=== PATIENT | male | born 1955 | race Caucasian/White ===

== ENCOUNTER 2017-08-20 07:05 | Inpatient (IN) ==
[2017-08-20] MEDS ORDERED: Heparin 10,000 UNITS/10 ML Vial (for IV use) IV.PUSH STA (07:56)
[2017-08-20] MEDS ORDERED: Sod Chloride 0.9% Inj 1,000 ML IV.SIG SCH (08:00)
[2017-08-20] MEDS ORDERED: Heparin/NS PF Inj 1,500 ML ONE (08:05)
[2017-08-20] MEDS ORDERED: Lidocaine PF 1% Inj 30 ML Vial ONE (08:05)
[2017-08-20] MEDS ORDERED: fentaNYL Citrate Inj 100 MCG/2 ML Ampul ONE (08:10)
[2017-08-20] MEDS ORDERED: Heparin 10,000 UNITS/10 ML Vial (for IV use) ONE (08:10)
--- NOTE | 2017-08-20 08:12 | ED ---
HPI General Chief Complaint: Chest Pain Stated Complaint: chest pain Time Seen by Provider: 08/20/17 07:38 Source: patient Mode of arrival: ambulatory Limitations: no limitations History of Present Illness HPI narrative: 61-year-old male complains of chest pain. Patient has history of patient has history of CAD status post CABG 7 years ago. Patient states that he has history intermittent chest pain since then. 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 Patient started having chest pain around 2:00 last night after strenuous work. Patient states that pain is substernal and right-sided chest with radiation to both arms. Patient states that the pain aching pain and sharp pain. Patient has symptoms of indigestion. Patient states that the chest pain lasted a short period of time and resolved with rest. Patient states that the chest pain recurred again around 5:00 this morning and has been persistent since then. Patient denies any nausea diaphoresis. Patient denies any shortness of breath. On a scale from 1-10 the pain is a 5. Patient also has history hypertension and hyperlipidemia. Patient to take aspirin 81 mg daily but not today. MD complaint: chest pain Complete Quality Measures for STEMI Alert Patients STEMI Alert: Yes Onset (ago): hour(s) Time: 08:11 Duration: constant Onset: during rest Pain location: substernal Severity: moderate Severity scale (1-10): 5 Quality: tightness, aching and sharp Pain radiation: RUE and LUE Relieving factors: rest and remaining still Exacerbating factors: exertion Context: other Associated symptoms: nausea Treatments prior to arrival chest pain: none Related Data Home Medications Medication Instructions Recorded Confirmed atorvastatin 1 tab PO DAILY 08/21/17 08/21/17 Previous Rx's Medication Instructions Recorded aspirin 81 mg PO DAILY tab 08/21/17 lisinopril 2.5 mg PO DAILY tab 08/21/17 metoprolol tartrate 25 mg PO BID tab 08/21/17 prasugrel [Effient] 10 mg PO DAILY #90 tab 08/21/17 torsemide 10 mg PO DAILY tab 08/21/17 Allergies Allergy/AdvReac Type Severity Reaction Status Date / Time No Known Allergies Allergy Verified 08/20/17 08:46 Review of Systems Except as stated in HPI: all other systems reviewed are negative PMFSH History History Provided By: Patient Social History Social History Substance History: No History of Abuse Second Hand Smoke Exposure: No Smoking Status: Never smoker How Often Do You Have a Drink Containing Alcohol: Monthly or less Recent Travel in [facility] within the Last 8 Weeks: No Recent Out of Country Travel within the Last 8 Weeks: No Exam Narrative Exam Narrative: GENERAL: Well-nourished, well-developed patient. SKIN: Focused skin assessment warm/dry. HEAD: Normocephalic. EYES: No scleral icterus. No injection or drainage. NECK: Supple, trachea midline. No JVD or lymphadenopathy. CARDIOVASCULAR: Regular rate and rhythm without murmurs, gallops, or rubs. RESPIRATORY: Breath sounds equal bilaterally. No accessory muscle use. GASTROINTESTINAL: Abdomen soft, non-tender, nondistended. MUSCULOSKELETAL: No cyanosis, or edema. BACK: Nontender without obvious deformity. No CVA tenderness. Neurologic exam normal. Course Hospital Course: EKG shows mild ST elevation in V1 V2 and ST depression in inferior leads. I spoke with Dr. Alexus Garcia, patient's ticket dispenser changer. STEMI alert was called. Patient was given aspirin 324 mg p.o. Patient was transported emergently to [facility]. Initial Documented Vital Signs Temperature 97.6 F 08/20/17 07:11 Pulse Rate 100 H 08/20/17 07:11 Respiratory Rate 20 08/20/17 07:11 Blood Pressure 146/79 H 08/20/17 07:11 Pulse Oximetry 97 08/20/17 07:11 Last Documented Vital Signs Temperature 98.6 F 08/21/17 15:00 Pulse Rate 91 H 08/21/17 17:00 Respiratory Rate 16 08/21/17 15:00 Blood Pressure 103/56 L 08/21/17 15:00 Pulse Oximetry 98 08/21/17 17:36 Critical Care Time Critical Care Time: Yes Total Critical Care Time: 30 Attestation: Aggregate critical care time was 30 minutes. Time to perform other separately billable procedures was not included in the critical care time. My time did not include minutes spent treating any other patients simultaneously or on activities that did not directly contribute to the patient's treatment. The services I provided to this patient were to treat and/or prevent clinically significant deterioration that could result in: I provided critical care services requiring my management, as noted below: Chart data review, documentation time, medication orders and management, vital sign assessments/reviewing monitor data, ordering and reviewing lab tests, ordering and interpreting/reviewing x-rays and diagnostic studies, care of the patient and discussion of the patient with the admitting physicians. Medical Decision Making MDM Narrative Medical decision making narrative: 61-year-old male with chest pain. History CAD status post CABG. EKG show ST elevation in anterior leads and ST depression in inferior leads. I spoke with patient's ticket dispenser changer Dr. Garcia. Advised STEMI alert and aspirin given patient patient be transferred emergently to the [facility]. Differential Diagnosis Differential Diagnosis: STEMI, angina, NV, PE, pneumothorax. Lab Data Result diagrams: 08/21/17 03:44 08/21/17 03:44 Lab Results 08/20/17 08/20/17 08/20/17 Range/Units 07:45 07:45 07:45 WBC 11.2 H (4.0-11.0) th/mm3 RBC 5.67 (4.50-5.90) mil/mm3 Hgb 17.2 H (13.0-17.0) gm/dL POC Hgb (Calc) (13.0-17.0) g/dL Hct 52.3 H (39.0-51.0) % POC Hct (39-51.0) % MCV 92.3 (80.0-100.0) fL MCH 30.4 (27.0-34.0) pg MCHC 32.9 (32.0-36.0) % RDW 14.6 (11.6-17.2) % Plt Count 197 (150-450) th/mm3 MPV 9.9 (7.0-11.0) fL Neut % (Auto) 65.7 (16.0-70.0) % Lymph % (Auto) 19.4 (9.0-44.0) % Gaines % (Auto) 13.5 H (0.0-8.0) % Eos % (Auto) 1.1 (0.0-4.0) % Baso % (Auto) 0.3 (0.0-2.0) % Neut # (Auto) 7.4 (1.8-7.7) th/mm3 Lymph # (Auto) 2.2 (1.0-4.8) th/mm3 Gaines # (Auto) 1.5 H (0.0-0.9) th/mm3 Eos # (Auto) 0.1 (0.0-0.4) th/mm3 Baso # (Auto) 0.0 (0.0-0.2) th/mm3 WBC Differential . Differential Comment Auto diff final PT 10.6 (9.8-11.6) sec INR 1.0 Ratio APTT 25.7 (24.3-30.1) sec POC Sodium (137-144) mmol/L Sodium (136-145) meq/L POC Potassium (3.6-5.0) mmol/L Potassium (3.5-5.1) meq/L POC Chloride (102-111) mmol/L Chloride (98-107) meq/L Carbon Dioxide (21.0-32.0) meq/L Anion Gap (5-15) meq/L POC BUN (5-21) mg/dL BUN (7-18) mg/dL Creatinine (0.60-1.30) mg/dL POC Creatinine (0.6-1.3) mg/dL Estimated GFR (>89) mL/min POC Glucose (68-110) mg/dL Random Glucose (74-106) mg/dL Calcium (8.5-10.1) mg/dL Magnesium 2.1 (1.5-2.5) mg/dL Total Bilirubin (0.2-1.0) mg/dL AST (15-37) U/L ALT (12-78) U/L Alkaline Phosphatase (45-117) U/L Total Creatine Kinase 137 (39-308) U/L CK-MB (CK-2) 2.2 (0.5-3.6) ng/mL Troponin I 0.05 (0.02-0.05) ng/mL B-Natriuretic Peptide (0-100) pg/mL Total Protein (6.4-8.2) g/dL Albumin (3.4-5.0) g/dL LDL Cholesterol Direct (0-99) mg/dL Lipase 153 (73-393) U/L 08/20/17 08/20/17 08/20/17 Range/Units 07:45 07:45 07:45 WBC (4.0-11.0) th/mm3 RBC (4.50-5.90) mil/mm3 Hgb (13.0-17.0) gm/dL POC Hgb (Calc) 18.0 H (13.0-17.0) g/dL Hct (39.0-51.0) % POC Hct 53.0 H (39-51.0) % MCV (80.0-100.0) fL MCH (27.0-34.0) pg MCHC (32.0-36.0) % RDW (11.6-17.2) % Plt Count (150-450) th/mm3 MPV (7.0-11.0) fL Neut % (Auto) (16.0-70.0) % Lymph % (Auto) (9.0-44.0) % Gaines % (Auto) (0.0-8.0) % Eos % (Auto) (0.0-4.0) % Baso % (Auto) (0.0-2.0) % Neut # (Auto) (1.8-7.7) th/mm3 Lymph # (Auto) (1.0-4.8) th/mm3 Gaines # (Auto) (0.0-0.9) th/mm3 Eos # (Auto) (0.0-0.4) th/mm3 Baso # (Auto) (0.0-0.2) th/mm3 WBC Differential Differential Comment PT (9.8-11.6) sec INR Ratio APTT (24.3-30.1) sec POC Sodium 136 L (137-144) mmol/L Sodium 136 Cancelled (136-145) meq/L POC Potassium 4.2 (3.6-5.0) mmol/L Potassium 4.2 Cancelled (3.5-5.1) meq/L POC Chloride 98 L (102-111) mmol/L Chloride 100 Cancelled (98-107) meq/L Carbon Dioxide 26.8 Cancelled (21.0-32.0) meq/L Anion Gap 9 Cancelled (5-15) meq/L POC BUN 30 H (5-21) mg/dL BUN 26 H Cancelled (7-18) mg/dL Creatinine 1.28 Cancelled (0.60-1.30) mg/dL POC Creatinine 1.3 (0.6-1.3) mg/dL Estimated GFR 57 L Cancelled (>89) mL/min POC Glucose 102 (68-110) mg/dL Random Glucose 96 Cancelled (74-106) mg/dL Calcium 9.0 Cancelled (8.5-10.1) mg/dL Magnesium (1.5-2.5) mg/dL Total Bilirubin 0.7 (0.2-1.0) mg/dL AST 32 (15-37) U/L ALT 31 (12-78) U/L Alkaline Phosphatase 73 (45-117) U/L Total Creatine Kinase Cancelled (39-308) U/L CK-MB (CK-2) (0.5-3.6) ng/mL Troponin I Cancelled (0.02-0.05) ng/mL B-Natriuretic Peptide 388 H (0-100) pg/mL Total Protein 8.1 (6.4-8.2) g/dL Albumin 4.0 (3.4-5.0) g/dL LDL Cholesterol Direct (0-99) mg/dL Lipase (73-393) U/L 08/21/17 08/21/17 08/21/17 Range/Units 03:44 03:44 03:44 WBC 10.7 (4.0-11.0) th/mm3 RBC 5.40 (4.50-5.90) mil/mm3 Hgb 16.5 (13.0-17.0) gm/dL POC Hgb (Calc) (13.0-17.0) g/dL Hct 49.2 (39.0-51.0) % POC Hct (39-51.0) % MCV 91.1 (80.0-100.0) fL MCH 30.6 (27.0-34.0) pg MCHC 33.6 (32.0-36.0) % RDW 14.7 (11.6-17.2) % Plt Count 181 (150-450) th/mm3 MPV 9.7 (7.0-11.0) fL Neut % (Auto) 68.0 (16.0-70.0) % Lymph % (Auto) 17.5 (9.0-44.0) % Gaines % (Auto) 12.8 H (0.0-8.0) % Eos % (Auto) 1.5 (0.0-4.0) % Baso % (Auto) 0.2 (0.0-2.0) % Neut # (Auto) 7.3 (1.8-7.7) th/mm3 Lymph # (Auto) 1.9 (1.0-4.8) th/mm3 Gaines # (Auto) 1.4 H (0.0-0.9) th/mm3 Eos # (Auto) 0.2 (0.0-0.4) th/mm3 Baso # (Auto) 0.0 (0.0-0.2) th/mm3 WBC Differential . Differential Comment Auto diff final PT (9.8-11.6) sec INR Ratio APTT (24.3-30.1) sec POC Sodium (137-144) mmol/L Sodium (136-145) meq/L POC Potassium (3.6-5.0) mmol/L Potassium (3.5-5.1) meq/L POC Chloride (102-111) mmol/L Chloride (98-107) meq/L Carbon Dioxide (21.0-32.0) meq/L Anion Gap (5-15) meq/L POC BUN (5-21) mg/dL BUN (7-18) mg/dL Creatinine (0.60-1.30) mg/dL POC Creatinine (0.6-1.3) mg/dL Estimated GFR (>89) mL/min POC Glucose (68-110) mg/dL Random Glucose (74-106) mg/dL Calcium (8.5-10.1) mg/dL Magnesium (1.5-2.5) mg/dL Total Bilirubin (0.2-1.0) mg/dL AST (15-37) U/L ALT (12-78) U/L Alkaline Phosphatase (45-117) U/L Total Creatine Kinase (39-308) U/L CK-MB (CK-2) (0.5-3.6) ng/mL Troponin I 1.36 H* (0.02-0.05) ng/mL B-Natriuretic Peptide (0-100) pg/mL Total Protein (6.4-8.2) g/dL Albumin (3.4-5.0) g/dL LDL Cholesterol Direct 146 H (0-99) mg/dL Lipase (73-393) U/L 08/21/17 Range/Units 03:44 WBC (4.0-11.0) th/mm3 RBC (4.50-5.90) mil/mm3 Hgb (13.0-17.0) gm/dL POC Hgb (Calc) (13.0-17.0) g/dL Hct (39.0-51.0) % POC Hct (39-51.0) % MCV (80.0-100.0) fL MCH (27.0-34.0) pg MCHC (32.0-36.0) % RDW (11.6-17.2) % Plt Count (150-450) th/mm3 MPV (7.0-11.0) fL Neut % (Auto) (16.0-70.0) % Lymph % (Auto) (9.0-44.0) % Gaines % (Auto) (0.0-8.0) % Eos % (Auto) (0.0-4.0) % Baso % (Auto) (0.0-2.0) % Neut # (Auto) (1.8-7.7) th/mm3 Lymph # (Auto) (1.0-4.8) th/mm3 Gaines # (Auto) (0.0-0.9) th/mm3 Eos # (Auto) (0.0-0.4) th/mm3 Baso # (Auto) (0.0-0.2) th/mm3 WBC Differential Differential Comment PT (9.8-11.6) sec INR Ratio APTT (24.3-30.1) sec POC Sodium (137-144) mmol/L Sodium 137 (136-145) meq/L POC Potassium (3.6-5.0) mmol/L Potassium 4.1 (3.5-5.1) meq/L POC Chloride (102-111) mmol/L Chloride 102 (98-107) meq/L Carbon Dioxide 20.3 L (21.0-32.0) meq/L Anion Gap 15 (5-15) meq/L POC BUN (5-21) mg/dL BUN 22 H (7-18) mg/dL Creatinine 1.04 (0.60-1.30) mg/dL POC Creatinine (0.6-1.3) mg/dL Estimated GFR 73 L (>89) mL/min POC Glucose (68-110) mg/dL Random Glucose 90 (74-106) mg/dL Calcium 9.2 (8.5-10.1) mg/dL Magnesium (1.5-2.5) mg/dL Total Bilirubin (0.2-1.0) mg/dL AST (15-37) U/L ALT (12-78) U/L Alkaline Phosphatase (45-117) U/L Total Creatine Kinase (39-308) U/L CK-MB (CK-2) (0.5-3.6) ng/mL Troponin I (0.02-0.05) ng/mL B-Natriuretic Peptide (0-100) pg/mL Total Protein (6.4-8.2) g/dL Albumin (3.4-5.0) g/dL LDL Cholesterol Direct (0-99) mg/dL Lipase (73-393) U/L Imaging Data Radiologist's impression: ITS Impressions Chest X-Ray 08/20/17 07:56 CONCLUSION: Poor inspiratory chest with diffuse hypoaeration No discrete airspace disease or evidence of significant congestion. Cardiomegaly with evidence of prior CABG. Discharge Plan Discharge Disposition Patient Disposition: 30 Still Patient Discharge Condition Condition: Good Discharge Order Discharge Orders: Discharge Order (Routine); Ordered 08/21/17 Ordered By: Alexus Garcia Cardiology Clear for Discharge (Routine); Ordered 08/21/17 Ordered By: Alexus Garcia Discharge Details Anticipated Discharge Date: 08/21/[address]: [address] elevation (STEMI) myocardial infarction Physicians Team ED Provider: Valerio Concepcion Primary Care Provider: Primary Care Evelyn Ang Attending Provider: Alexus Garcia I Status ED Status: Left Department Discharge Information Discharge Date/Time: 08/20/17 08:09
[2017-08-20 08:17] LABS: Baso % (Auto) 0.3 % (0.0-2.0); Eos # (Auto) 0.1 th/mm3 (0.0-0.4); Eos % (Auto) 1.1 % (0.0-4.0); Hematocrit 52.3 % (39.0-51.0); Hemoglobin 17.2 gm/dL (13.0-17.0); Lymph # (Auto) 2.2 th/mm3 (1.0-4.8); Lymph % (Auto) 19.4 % (9.0-44.0); Mean Corpuscular HGB Conc 32.9 % (32.0-36.0); Mean Corpuscular Hemoglobin 30.4 pg (27.0-34.0); Mean Corpuscular Volume 92.3 fL (80.0-100.0); Mean Platelet Volume 9.9 fL (7.0-11.0); Mono # (Auto) 1.5 th/mm3 (0.0-0.9); Mono % (Auto) 13.5 % (0.0-8.0); Neut # (Auto) 7.4 th/mm3 (1.8-7.7); Neut % (Auto) 65.7 % (16.0-70.0); Platelet Count 197 th/mm3 (150-450); Red Blood Count 5.67 mil/mm3 (4.50-5.90); Red Cell Distribution Width 14.6 % (11.6-17.2); White Blood Count 11.2 th/mm3 (4.0-11.0)
--- NOTE | 2017-08-20 08:20 | XR ---
EXAM DATE: 08/20/2017 8:15 AM EDT AGE/SEX: 61 years / Male INDICATIONS: Chest pain with history of CABG. CLINICAL DATA: This is the patient's initial encounter. Patient reports that signs and symptoms have been present for 1 day and indicates a pain score of 8/10. MEDICAL/SURGICAL HISTORY: Cardiovascular disease. CABG. [place] [facility] [place]. . FINDINGS: The lungs are hypoaerated. Interstitial vascular prominence is noted throughout. There is no evidence of consolidating airspace disease, significant congestion or pleural effusions. Heart is moderately enlarged. Postsurgical changes from prior CABG are noted. 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 CONCLUSION: Poor inspiratory chest with diffuse hypoaeration No discrete airspace disease or evidence of significant congestion. Cardiomegaly with evidence of prior CABG. Electronically signed by: Renato Slade MD 08/20/2017 8:19 AM EDT
[2017-08-20 08:28] LABS: Activated Partial Thrombo Time 25.7 sec (24.3-30.1); Prothrombin Time 10.6 sec (9.8-11.6)
[2017-08-20 08:40] LABS: Alanine Aminotransferase 31 U/L (12-78); Anion Gap 9 meq/L (5-15); Aspartate Aminotransferase 32 U/L (15-37); Blood Urea Nitrogen 26 mg/dL (7-18); Carbon Dioxide 26.8 meq/L (21.0-32.0); Chloride 100 meq/L (98-107); Glomerular Filtration Rate 57 mL/min (>89); Glucose,Random 96 mg/dL (74-106); Potassium 4.2 meq/L (3.5-5.1); Sodium 136 meq/L (136-145)
[2017-08-20 08:41] LABS: Lipase 153 U/L (73-393); Magnesium 2.1 mg/dL (1.5-2.5)
[2017-08-20 08:42] LABS: Alkaline Phosphatase 73 U/L (45-117); Total Protein 8.1 g/dL (6.4-8.2)
[2017-08-20 08:43] LABS: Creatine Kinase 137 U/L (39-308); Troponin I 0.05 ng/mL (0.02-0.05)
[2017-08-20 08:58] LABS: Creatine Kinase MB 2.2 ng/mL (0.5-3.6)
--- NOTE | 2017-08-20 10:24 | CATHPROC ---
Upward Mobility HIS Report Study Information Study Number Admission Scheduled Start Study Start [id number] Aug 20 2017 7:05AM 08/20/2017 Aug 20 2017 8:06AM [place] Service Cath Endovascular Study Admit Source Facility Department Emergency department [facility] - [facility] Physician and Clinical Staff Initial Alexus Dinero Call Box WirerDomenic Ricci,RN Domenic Cordero,RN Recorder Abigail Kramer BSN Scrub Francisca Garcias,MANAGEMENT MANAGER TECH2 Procedures Performed Procedure Location (Site) Vessel Name Angiogram LV AO Arch (A1) Aorta Coronary Angiograms LCA Left Coronary Coronary Angiograms RCA Right Coronary Coronary Angiograms SVG-OM CIRC Coronary Angiograms SVG-PDA Right Coronary Drug Eluting Inflatio LEFT MAIN ARTERY-(11 Left Coronary IVUS Fem Art (right) Femoral Art L Heart Cath PTCA LEFT MAIN ARTERY-(11 Left Coronary Wire insertion Fem Art (right) Femoral Art Equipment 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 FR 5 [id number] *[id number] Used MICROPUNCTURE STIFF 534-676T *[id number] 534-548T *[id number] [id number] *[id number] 534-620T *[id number] 534-572T *[id number] 534-650S *[id number] 08:37 [employer] BLANKET,WARM AIR CCL * Used *[id number] 08:37 [employer] PACK, CCL CUSTOM * Used *[id number] 08:37 [employer] PACER PEN, SKIN DUAL W/ RULER * Used *[id number] 09:22 MEDTRONIC AL 1 DXTERITY CATHETER FR 5 Used *[id number] 09:33 [employer] BALLOON, 3.0 X 12MM EUPHORA 12MM Used *[id number] BALLOON, 3.75 X 12MM NC [id number] 09:49 [employer] 12MM Used EUPHORA *[id number] 09:44 [employer] STENT, 3.5 18MM KATHLEEN 3.5 18MM Used *[id number] 09:35 [employer] MEDICAL 30 JOSE INDEFLATOR Used *[id number] 08:38 [employer] MEDICAL SHEATH, FR6.5 PRELUDE 11CM FR 6.5 038ACT Used *[id number] 08:37 [employer] MEDICAL WIRE, 3MMJ .035 180CM 180CM Used *[id number] 08:52 [employer] MEDICAL WIRE, 3MMJ .035 180CM 180CM Used *[id number] 08:37 NAMIC MANIFOLD, 4 PORT * Used *[id number] 08:37 [employer]COMED OMNIPAQUE, 350 MG, 150ML 150ML [id number] Used 09:28 [employer]ED OMNIPAQUE, 350 MG, 150ML 150ML [id number] Used 09:28 [employer]ED OMNIPAQUE, 350 MG, 50ML 50ML [id number] Used CATHETER, [place] [employer] RED DEVIL [id number] 09:41 [employer] Used IMAGING *[id number] Equipment Model, Serial, Lot Number and Expiration Data Description Model Number Serial Number Lot Number Expiration Date AL 1 DXTERITY CATHETER [id number] 07-25-2019 INTRODUCER SET, [id number] 07-10-2020 MICROPUNCTURE STIFF STENT, 3.5 18MM KATHLEEN [id number] 01-21-2019 History: Current Medications Medication Dosage/Unit Route Frequency Last Date/Time Taken ASA 324 mg 08/20/2017 History: Allergies Allergy Reaction No Known Allergies unknown History: Risk Factors Family History of Hypertension Dyslipidemia Previous NH Previous Heart Failure Premature CAD Yes Yes Yes No No Prior Valve Prior PCI Prior CABG Prior CABGDate Surgery No No Yes 09/08/2010 Cerebrovascular Peripheral Artery Chronic Lung On Dialysis Diabetes Disease Disease Disease No No No No No History: Symptoms/Diagnosis Selection Items Chest pain History: CV Disease Selection Items Known CAD History: Stress Tests Stress or Imaging Studies Performed No History: Other Disease Selection Items CAD History: NH/CV Data Previous CABG Date 09/08/2017 History: Other Current Smoker No Labs Hgb (g/dl) Hct (%) WBC (l/cumm) Platelets (thousands) 11.60-17.00 35.00-51.00 4.00-11.00 150.00-450.00 17.2 52.3 11.2 197 Glucose (mg/dl) BUN (mg/dl) Creatinine (mg/dl) BUN:Creatinine (1:x) 74.00-106.00 7.00-18.00 0.50-1.30 10.00-20.00 102 30 1.3 23.1 Na (meq/l) K (meq/l) 136.00-145.00 3.50-5.10 136 4.2 Medication Medication Total Dose (Bolus/Oral) Medication Total Dosage/Unit 1% XYLOCAINE 10 mL EFFIENT 60 mg FENTANYL 50 mcg HEPARIN 4000 units VERSED 2 mg Medications (Bolus/Oral) Medication Time Given Dosage/Unit Administered By Reason 1% XYLOCAINE 08/20/2017 8:40:08 AM 10 mL Alexus Garcia 10 mL 1% XYLOCAINE given in lab by Alexus Garcia via Subcutaneous. Ordered by Alexus Garcia. VERSED 08/20/2017 8:41:12 AM 2 mg Sandee, Domenic 2 mg VERSED given in lab by Domenic Ignacio RN via Peripheral IV. Ordered by Alexus Garcia. FENTANYL 08/20/2017 9:20:35 AM 50 mcg Sandee, Domenic 50 mcg FENTANYL given in lab by Domenic Ignacio RN via Peripheral IV. Ordered by Alexus Garcia. HEPARIN 08/20/2017 9:25:03 AM 2000 units Sandee, Domenic 2000 units HEPARIN given in lab by Domenic Ignacio RN via Peripheral IV. Ordered by Alexus Garcia. HEPARIN 08/20/2017 9:36:26 AM 2000 units Sandee, Domenic 2000 units HEPARIN given in lab by Domenic Ignacio RN via Peripheral IV. Ordered by Alexus Garcia. EFFIENT 08/20/2017 10:03:53 AM 60 mg Sandee, Domenic 60 mg EFFIENT given in lab by Domenic Ignacio RN via Oral. Ordered by Alexus Garcia. Medication (Drip) Medication Time Given Dosage/Unit Concentration/Unit Diluent (ml) Solution IV Solutions 08/20/2017 8:19:31 AM 50 mL (IV) NaCl .9 Patient arrived on IV Solutions via Peripheral IV. Pump/Drip Flow using NaCl .9. at [facility] Initial Case Assessment Cardiovascular HR Rhythm NIBP Chest Pain 66 sr 102/61 0 Edema Present Skin color Skin None Normal Warm Circulatory - Right Pulses Dorsalis Pedis Femoral 3 3 Scale (0,1,2,3,4,d) Circulatory - Left Pulses Dorsalis Pedis Femoral 3 3 Scale (0,1,2,3,4,d) Circulatory - Lower Extremities Color Lower Right Color Lower Left Normal Normal Neurological State Oriented to time-place- Alert Moves all extremities person Respiration - General Respiration Rate SpO2 (%) O2 (lpm) (B/min) 23 93 2 Final Case Assessment Cardiovascular HR Rhythm NIBP Chest Pain 93 sr 119/68 2 Edema Present Skin color Skin None Normal Warm Circulatory - Right Pulses Dorsalis Pedis Femoral 3 3 Scale (0,1,2,3,4,d) Circulatory - Left Pulses Dorsalis Pedis Femoral 3 3 Scale (0,1,2,3,4,d) Circulatory - Lower Extremities Color Lower Right Color Lower Left Normal Normal Neurological State Oriented to time-place- Alert Moves all extremities person Respiration - General Respiration Rate SpO2 (%) O2 (lpm) (B/min) 25 100 2 Chronological Log Time Study Chronological Log 8:09:36 Emergency Room notified that [facility]iler is ready. Spoke to Sarah URRUTIA 8:13:43 Patient arrived via Bed. 8:13:44 Patient Name, D.O.B, / Armband Verified By R.N. 8:13:44 Consent signed by the physician and the patient and verified by the [facility] staff. 8:18:12 Heparin 5000 units given in ED prior to arrival to greenskeeper laborer Vitals capture started with the following parameters, Patient=Adult, Interval=5 min, Initial Pr ttypks=932 mmHg, 8:18:55 Deflation Rate=5 mmHg, Cuff placed on Right Arm 8:18:59 Patient has been NPO for More than 6Hrs. 8:19:00 Skin Breakdown- none per patient 8:19:10 Pre-op and post- op instructions given; patient acknowledges understanding of instructions. 8:19:11 Patient Warmer Placed on the Table. 8:19:13 Disposable Defibrillator Pads Placed On Patient. 8:19:17 A # 20 IV was noted in the Antecubital (left). Grade = 0 8:19:22 A # 18 IV was noted in the Antecubital (right). Grade = 0 8:19:26 HR=97 bpm, JXGE=476/61 mmhg, SpO2=93.0 %, Resp=23 B/min, Pain=0, Kaykay=10, Davalos=2 8:19:31 Patient arrived on IV Solutions via Peripheral IV. Pump/Drip Flow using NaCl .9. at O 8:19:47 History and physical on the chart or being dictated. Assessment: Initial Case, HR=66 BPM, Rhythm=sr, WKRA=640/61 mmhg, Chest Pain=0, Edema=None, Melrose r=Normal, Skin = Warm Right Pulses: Henry Ped=3, Femoral=3 Left Pulses: Henry Ped=3, Femoral=3 8:19:50 Lower Right Extremities: Color=Normal Lower Left Extremities: Color=Normal Neurological: State=Alert, Ox3, CHAN Respiration: Resp=23 B/min, SpO2=93 %, O2=2 lpm 8:23:43 Pressure channel 1 zeroed. 8:24:25 HR=90 bpm, NIBP=96/60 mmhg, SpO2=95.0 %, Pain=0, Kaykay=10, Davalos=2 8:25:26 Bilateral groins prepped with 2% chlorhexidine, and draped after a 3 minute waiting time. 8:26:35 MD called; instructions given 8:30:01 HR=89 bpm, MCHQ=920/55 mmhg, SpO2=96.0 %, Pain=0, Kaykay=10, Davalos=2 8:30:58 Reference ECG taken 8:34:27 HR=88 bpm, WTLP=283/62 mmhg, SpO2=97.0 %, Pain=0, Kaykay=10, Davalos=2 8:36:33 MD arrived. 8:39:26 HR=87 bpm, IYRT=605/72 mmhg, SpO2=98.0 %, Pain=0, Kaykay=10, Davalos=2 Time Out. Correct patient, correct procedure, correct physician, labs, allergies, and equipment verified with greenskeeper laborer 8:39:41 team present. Fire risk assesment completed (see hard stop sheet for coding). Time Out Concu rred by MD and individual staff in procedure. 8:39:45 Case Start 8:40:08 10 mL 1% XYLOCAINE given in lab by Alexus Garcia via Subcutaneous. Ordered by Alexus Garcia. 8:41:12 2 mg VERSED given in lab by Sandee, Domenic, RN via Peripheral IV. Ordered by Alexus Garcia. 8:44:23 Access site was Right Femoral Artery. via ultrasound 8:44:30 HR=90 bpm, GORB=878/67 mmhg, SpO2=95.0 %, Resp=18 B/min A INTRODUCER SET, MICROPUNCTURE STIFF FR 5 was advanced into the Fem Art (right) using the Percu tannikhilous 8:44:33 technique. 8:45:32 An injection in the Fem Art (right) was made through the INTRODUCER SET, MICROPUNCTURE STIFF FR 5. A SHEATH, FR6.5 PRELUDE 11CM FR 6.5 was exchanged in the Fem Art (right). This was necessary in order to 8:46:22 accomodate a larger catheter. A JL 4.0 INFINITI CATHETER FR 6 was advanced over a wire. OMNIPAQUE, 350 MG, 150ML 150ML was use d for 8:47:27 injections. 8:47:44 Activated Clotting Time Drawn Recorded Pressure: Ao, HR=88, Condition=Condition 1 8:48:27 (Aorta) Ao 114/67/89 8:49:00 A WIRE, 3MMJ .035 180CM 180CM was inserted via Fem Art (right). 8:49:31 HR=91 bpm, AYDK=046/66 mmhg, SpO2=97.0 %, Resp=19 B/min 8:50:39 ACT (Normal Range 90-180) = 180 8:50:43 Wire removed 8:51:54 The LCA was injected and visualized at various angles. OMNIPAQUE, 350 MG, 150ML 150ML used. After removing the current catheter a AR MOD INFINITI CATHETER FR 5 was advanced over a WIRE, 3M MJ .035 180CM 8:53:39 180CM. 8:54:30 HR=91 bpm, ZKUV=613/60 mmhg, SpO2=97.0 %, Resp=19 B/min 8:55:10 The RCA was injected and visualized at various angles. OMNIPAQUE, 350 MG, 150ML 150ML used. 8:55:48 The SVG-PDA was injected and visualized at various angles. OMNIPAQUE, 350 MG, 150ML 150ML us ed. 8:58:05 The SVG-OM was injected and visualized at various angles. OMNIPAQUE, 350 MG, 150ML 150ML use d. After removing the current catheter a LCB INFINITI CATHETER FR 5 was advanced over a WIRE, 3MMJ .035 180CM 8:59:07 180CM. 9:00:08 HR=90 bpm, ZVMI=878/60 mmhg, SpO2=98.0 %, Resp=18 B/min 9:04:28 HR=92 bpm, XTGA=596/72 mmhg, SpO2=99.0 %, Resp=19 B/min 9:09:21 A WIRE, 3MMJ .035 180CM 180CM was inserted via Fem Art (right). 9:09:29 HR=94 bpm, WUBX=655/75 mmhg, SpO2=99.0 %, Resp=15 B/min After removing the current catheter a PIGTAIL STR INFINITI CATHETER FR 6 was advanced over a WIR E, 3MMJ .035 9:10:58 180CM 180CM. 9:11:14 Wire removed 9:13:12 The AO Arch (A1) was injected at 20 cc/sec for a total of 40. OMNIPAQUE, 350 MG, 150ML 150ML used. 9:14:30 HR=96 bpm, GXIY=272/82 mmhg, SpO2=99.0 %, Resp=20 B/min After removing the current catheter a 3DRC INFINITI CATHETER FR 6 was advanced over a WIRE, 3MMJ .035 180CM 9:17:31 180CM. 9:19:31 HR=99 bpm, KHLJ=794/86 mmhg, EtM4=534.0 %, Resp=15 B/min 9:20:35 50 mcg FENTANYL given in lab by Domenic Ignacio RN via Peripheral IV. Ordered by Alexus Garcia. 9:21:43 Catheter was removed 9:24:32 HR=94 bpm, BABB=049/87 mmhg, IwN0=405.0 %, Resp=21 B/min 9:25:03 2000 units HEPARIN given in lab by Domenic Ignacio RN via Peripheral IV. Ordered by Carol Garcia. A JL 4.0 GUIDE CATHETER FR 6 was advanced over a wire. OMNIPAQUE, 350 MG, 150ML 150ML was used f or 9:25:49 injections. 9:29:33 HR=93 bpm, YCZE=111/82 mmhg, VrF9=162.0 % 9:30:55 A WIRE, WHISPER W/HYDROCOAT 190CM 190CM was inserted via Fem Art (right). 9:33:07 Interventional wire has crossed the lesion 9:33:15 Activated Clotting Time Drawn A BALLOON, 3.0 X 12MM EUPHORA 12MM was inserted over WIRE, WHISPER W/HYDROCOAT 190CM 190CM via t he 9:33:54 Fem Art (right). 9:34:30 HR=94 bpm, RAXR=503/84 mmhg, GzN9=981.0 %, Resp=20 B/min A BALLOON, 3.0 X 12MM EUPHORA 12MM over a WIRE, WHISPER W/HYDROCOAT 190CM 190CM in the LEFT MAIN 9:34:49 ARTERY-(11 was inflated using a 30 JOSE INDEFLATOR at 8 jose for 15 sec. A BALLOON, 3.0 X 12MM EUPHORA 12MM over a WIRE, WHISPER W/HYDROCOAT 190CM 190CM in the LEFT MAIN 9:35:17 ARTERY-(11 was inflated using a 30 JOSE INDEFLATOR at 8 jose for 10 sec. A BALLOON, 3.0 X 12MM EUPHORA 12MM over a WIRE, WHISPER W/HYDROCOAT 190CM 190CM in the LEFT MAIN 9:35:46 ARTERY-(11 was inflated using a 30 JOSE INDEFLATOR at 8 jose for 14 sec. 9:36:10 ACT (Normal Range 90-180) = 183 9:36:26 2000 units HEPARIN given in lab by Domenic Ignacio RN via Peripheral IV. Ordered by Carol Garcia. 9:38:11 Balloon Removed. 9:39:33 HR=92 bpm, DEZU=191/83 mmhg, KlW9=552.0 %, Resp=18 B/min 9:40:23 An CATHETER, [place] [employer]IL IMAGING was advanced through the lesion. Images saved on to IVUS hard drive 9:40:50 IVUS in progress using CATHETER, [place] [employer] IMAGING 9:43:00 IVUS catheter removed 9:44:12 Activated Clotting Time Drawn 9:44:32 HR=95 bpm, AMKN=371/84 mmhg, SpO2=99.0 %, Resp=17 B/min A STENT, 3.5 18MM KATHLEEN 3.5 18MM was advanced through a JL 4.0 GUIDE CATHETER FR 6 over a WIRE, W HISPER 9:45:35 W/HYDROCOAT 190CM 190CM. A STENT, 3.5 18MM KATHLEEN 3.5 18MM was deployed using a 30 JOSE INDEFLATOR at 12 atmospheres for 1 5 seconds in 9:46:54 the LEFT MAIN ARTERY-(11. 9:48:14 Delivery device removed 9:49:35 HR=96 bpm, WLWT=359/76 mmhg, TsO0=439.0 %, Resp=12 B/min A BALLOON, 3.75 X 12MM NC EUPHORA 12MM was inserted over WIRE, WHISPER W/HYDROCOAT 190CM 190CM via 9:50:00 the Fem Art (right). A BALLOON, 3.75 X 12MM NC EUPHORA 12MM over a WIRE, WHISPER W/HYDROCOAT 190CM 190CM in the LEF T 9:52:31 MAIN ARTERY-(11 was inflated using a 30 JOSE INDEFLATOR at 20 jose for 24 sec. 9:54:16 Balloon Removed. 9:54:28 Catheter was removed 9:54:41 HR=90 bpm, ZMYM=892/70 mmhg, SpO2=99.0 %, Resp=25 B/min 9:56:18 Case End (Physician broke scrub) 9:58:34 In the Fem Art (right) the SHEATH, FR6.5 PRELUDE 11CM FR 6.[address] by Alexus Garcia. 9:58:39 Sterile dressing applied to site 9:58:40 No case complications noted. 9:58:41 Cine recording checked. 9:58:42 Bedside Report will be given. 9:58:43 Implantable Device card placed in patient's chart. 9:58:48 A Left Heart Cath was performed. Assessment: Final Case, HR=93 BPM, Rhythm=sr, HFGL=498/68 mmhg, Chest Pain=2, Edema=None, Melrose r=Normal, Skin = Warm Right Pulses: Henry Ped=3, Femoral=3 Left Pulses: Henry Ped=3, Femoral=3 9:58:58 Lower Right Extremities: Color=Normal Lower Left Extremities: Color=Normal Neurological: State=Alert, Ox3, CHAN Respiration: Resp=25 B/min, OxQ5=076 %, O2=2 lpm 9:59:38 HR=91 bpm, ZUPI=670/68 mmhg, TfR7=789.0 %, Resp=23 B/min, Pain=2, Kaykay=10, Davalos=2 10:01:26 ACT (Normal Range 90-180) = 278 10:03:53 60 mg EFFIENT given in lab by Domenic Ignacio, RN via Oral. Ordered by Alexus Garcia. 10:08:45 Patient moved to [facility] End Study - Contrast Media Used In Study Contrast Total Opened (mL) Total Used (mL) Total Wasted (mL) Omnipaque 220 220 0 End Study - Maximum Contrast Load Max Contrast Load (mL) 402.1 End Study - Radiation Exposure Fluoro Time (minutes) 23.4 End Study - Patient Disposition Complications Transferred To Interventional Outcome No Telemetry Bed successful
[2017-08-20] MEDS ORDERED: Iohexol 350 MG/ML 100 ML Vial (for Cath Lab) IV.SIG ONE (10:36)
[2017-08-20] MEDS ORDERED: Iohexol 350 MG/ML 50 ML Vial (for Cath Lab) IV.SIG ONE (10:36)
--- NOTE | 2017-08-20 10:44 | MA ---
cc: Alexus Garcia MD DATE: 08/20/2017 INDICATIONS: A 61-year-old white male with coronary artery disease, status post 3-vessel CABG to the OM, PDA and RCA, who presented with an anterior STEMI. PROCEDURES PERFORMED: 1. Ultrasound-guided femoral access. 2. Left cardiac catheterization via right femoral approach. 3. Selective coronary angiography. 4. Selective saphenous vein angiography. 5. PCI of the left main with a drug-coated stent. DETAILS OF THE PROCEDURE: Micropuncture needle to right common femoral artery under direct ultrasonographic guidance. The micro sheath was used to perform a femoral angiogram in the BALDERAS projection. The microsheath was then exchanged for a 6-Albanian sheath. Diagnostic angiography was performed with a 6-Albanian JL4 for the left anterior descending artery, a 6-Albanian AR mod for the right coronary artery and right saphenous vein graft and a 5-Albanian left coronary bypass catheter for the OM graft. PCI of the left main was performed through a 6-Albanian JL4 guiding catheter. A Whisper wire was used to cross the lesion. The lesion was predilated with a 3 x 12 mm angioplasty balloon. The lesion was then treated with a 3.5 x 18 mm Resolute drug-coated stent, which was deployed at nominal pressure. The stent was later postdilated with a 3.75 x 12 mm noncompliant balloon, which was inflated all the way up to 20 atmospheres of pressure. The patient tolerated the procedure well and left the laboratory with minimal chest discomfort. HEMODYNAMICS: The patient remained in normal sinus rhythm. Aortic pressure was 114/67 with a mean of 89 mmHg. MEDICATIONS: Versed 2 mg IV x1, fentanyl 50 mcg IV x1, heparin a total of 4000 units in the lab and 5000 units in the emergency room. The ACT was around 280 seconds. The patient also received a loading dose of Effient of 60 mg x1. CONTRAST: Total amount of contrast used was 220 mL of Omnipaque 300. ANGIOGRAPHY: Left main with 99% stenosis and LIZZETTE 1 flow down the LAD and the diagonal branches. Circumflex artery was totally occluded proximally. Right coronary artery was totally occluded proximally. Saphenous vein graft to the OM was widely patent. Saphenous vein graft to the PDA was widely patent. One other saphenous vein graft could not be identified even with the help of a thoracic aortogram. Post-PCI and stenting, there was less than 10% residual in the left main with LIZZETTE 3 flow. The LAD was a diffusely diseased, but with no critical stenosis. Milligrays [id number]. FLUOROSCOPY TIME: 23 minutes. IMPRESSION: 1. Anterior STEMI secondary to critical left main stenosis. 2. Successful left main stenting with drug-coated stent. 3. Patent saphenous vein graft to OM and PDA. RECOMMENDATIONS: 1. Aspirin for lifetime. 2. Prasugrel 10 mg daily for at least 1 year, possibly lifetime due to location of the stent. 3. Continue beta blockers, BERNICE inhibitors, and statins as tolerated. 4. Risk factor modification with a cardiac diet, regular exercise, and weight loss. MD NGHIA Lopes/LETY , 10:16 AM , 10:42 AM
[2017-08-20] MEDS ORDERED: Acetaminophen 325 MG Tablet PO PRN (13:02)
[2017-08-20] MEDS ORDERED: Morphine Inj 4 MG/ML Vial IV.PUSH PRN (13:02)
[2017-08-20] MEDS ORDERED: Sodium Chlor 0.9% Inj 250 ML IV.SIG ONE (13:02)
[2017-08-20] MEDS ORDERED: Atropine Inj 1 MG/ML Vial IV.PUSH PRN (13:02)
[2017-08-20] MEDS ORDERED: Lisinopril 5 MG Tablet PO SCH (14:00)
--- NOTE | 2017-08-20 14:44 | ECG ---
Date Performed: 08/20/2017 Time Performed: 11:15:48 PTAGE: 61 years EKG: Sinus rhythm Consider left atrial abnormality Left anterior fascicular block Possible septal infarct - age undete rmined Lateral T wave changes are nonspecific Abnormal ECG Compared to prior electrocardiogram, Nonsp ecific ST changes are less marked . PREVIOUS TRACING : 08/20/2017 07.18 DOCTOR: Guanaco Dominique Interpretating Date/Time 08/20/2017 14:43:58
[2017-08-20] MEDS: Sod Chloride 0.9% Inj 500 ML IV.CONT SCH (16:22)
[2017-08-20] MEDS: Lisinopril 5 MG Tablet PO SCH (17:14)
--- NOTE | 2017-08-20 17:17 | MB ---
cc: Alexus Garcia MD DATE: 08/20/2017 TIME: The patient seen in the animal laboratory helper at 8:30 in the morning. REASON FOR CONSULTATION: Anterior STEMI. HISTORY OF PRESENT ILLNESS: He is a 61-year-old white male who presented to the emergency room with chest pain and [address] elevation in V1 and V2. STEMI-alert was called. The patient was taken to the animal laboratory helper, where he received a stent to his left main artery. The patient was discharged from the cath laboratory in a stable condition and admitted to the intensive care unit for post-PCI care. PAST MEDICAL HISTORY: Ischemic cardiomyopathy with recently found decrease in ejection fraction to 30-35%, with new onset systolic congestive heart failure. Coronary artery disease, status post 3-vessel CABG back in August of 2010, with saphenous vein graft to the RCA, PDA and obtuse marginal branches, obesity, hypertension, hyperlipidemia, moderate aortic insufficiency, nephrolithiasis, bronchitis. SOCIAL HISTORY: Does not smoke or drink. ALLERGIES: Unknown. MEDICATIONS AT HOME: Torsemide 5 mg daily, lisinopril 2.5 mg daily, atorvastatin 40 mg daily, metoprolol 50 mg twice a day, aspirin 81 mg daily. PHYSICAL EXAMINATION: VITAL SIGNS: The patient had a blood pressure of 114/67, with a mean of 89 mmHg, heart rate 70 beats per minute. HEAD AND NECK: Unremarkable, without JVD or carotid bruits. LUNGS: Clear to auscultation. HEART: Normal S1 and S2, with no murmurs heard. LUNGS: Clear to auscultation. ABDOMEN: Benign, without visceromegaly or bruits, although his abdomen is obese. EXTREMITIES: Without edema. LABORATORY DATA: Electrocardiogram showed normal sinus rhythm with a [address] elevation in V1 and V2 and ischemic changes in the lateral leads. Blood work was pending at the time of the dictation. ASSESSMENT AND PLAN: 1. Anterior STEMI, status post successful revascularization of the left main with a drug-coated stent. 2. Aortic insufficiency, moderate. We will monitor. 3. History of systolic congestive heart failure, we will restart BERNICE inhibitors, beta blockers and diuretics as tolerated. 4. Hyperlipidemia. We will restart statin. 5. Hypertension, well controlled. The patient will require a referral for cardiac rehabilitation upon discharge. He will probably also will require a LifeVest since his ejection fraction recently decreased to 30-35%. He might benefit from an AICD after 3 months of optimal medical therapy if his ejection fraction does not improve. MD NGHIA Lopes/KETTY , 04:56 PM , 05:16 PM MARIANNE
--- NOTE | 2017-08-20 19:04 | ECG ---
Date Performed: 08/20/2017 Time Performed: 07:18:19 PTAGE: 61 years EKG: Sinus rhythm POSSIBLE LEFT ATRIAL ENLARGEMENT LEFT ANTERIOR FASCICULAR BLOCK POSSIBLE LEFT VENTRICULAR HYPERTROPH Y POSSIBLE SEPTAL MYOCARDIAL INFARCTION MODERATE T-WAVE ABNORMALITY, CONSIDER LATERAL ISCHEMIA ABNORM AL ECG PREVIOUS TRACING : 09/09/2010 03.21 When compared to prior ekg, patient is now in a sinus rythm DOCTOR: Yumi Rasheed Interpretating Date/Time 08/20/2017 19:02:59
[2017-08-20] MEDS ORDERED: Temazepam 15 MG Capsule PO PRN (21:00)
[2017-08-20] MEDS: Metoprolol Tartrate 25 MG Tablet PO SCH (21:00)
[2017-08-21] MEDS: Sod Chloride 0.9% Inj 500 ML IV.CONT SCH (00:27)
[2017-08-21 04:21] LABS: Baso % (Auto) 0.2 % (0.0-2.0); Eos # (Auto) 0.2 th/mm3 (0.0-0.4); Eos % (Auto) 1.5 % (0.0-4.0); Hematocrit 49.2 % (39.0-51.0); Hemoglobin 16.5 gm/dL (13.0-17.0); Lymph # (Auto) 1.9 th/mm3 (1.0-4.8); Lymph % (Auto) 17.5 % (9.0-44.0); Mean Corpuscular HGB Conc 33.6 % (32.0-36.0); Mean Corpuscular Hemoglobin 30.6 pg (27.0-34.0); Mean Corpuscular Volume 91.1 fL (80.0-100.0); Mean Platelet Volume 9.7 fL (7.0-11.0); Mono # (Auto) 1.4 th/mm3 (0.0-0.9); Mono % (Auto) 12.8 % (0.0-8.0); Neut # (Auto) 7.3 th/mm3 (1.8-7.7); Platelet Count 181 th/mm3 (150-450); Red Cell Distribution Width 14.7 % (11.6-17.2); White Blood Count 10.7 th/mm3 (4.0-11.0)
[2017-08-21 09:54] LABS: Calcium 9.2 mg/dL (8.5-10.1); Carbon Dioxide 20.3 meq/L (21.0-32.0)
[2017-08-21] MEDS: Metoprolol Tartrate 25 MG Tablet PO SCH (09:56)
[2017-08-21] MEDS: Lisinopril 5 MG Tablet PO SCH (09:57)
[2017-08-21 10:09] LABS: Potassium 4.1 meq/L (3.5-5.1)
== END 2017-08-21 18:11 | disposition home or self-care (01) ==
LOC: NEPC 07:05 → NEDA 08:01 → HCPC 10:49
PROVIDERS: ADMIT Specialist; ATTEND Specialist
DX: Z79.899 Other long term (current) drug therapy; E66.9 Obesity, unspecified; Z79.82 Long term (current) use of aspirin; I25.2 Old myocardial infarction; I25.10 Atherosclerotic heart disease of native coronary artery without angina pectoris; Z90.49 Acquired absence of other specified parts of digestive tract; Z95.1 Presence of aortocoronary bypass graft; E78.5 Hyperlipidemia, unspecified; Z68.39 Body mass index [BMI] 39.0-39.9, adult; I11.0 Hypertensive heart disease with heart failure; I21.09 ST elevation (STEMI) myocardial infarction involving other coronary artery of anterior wall; I50.20 Unspecified systolic (congestive) heart failure; Z96.649 Presence of unspecified artificial hip joint; I35.1 Nonrheumatic aortic (valve) insufficiency